=== PATIENT | female | born 1940 | race Caucasian/White ===

== ENCOUNTER → 2023-09-30 13:29 | Outpatient (REF) | payer OTHER, SELFPAY | LOC: HWRCS 13:29 | PROVIDERS: ATTENDING PHYSICIAN Nuclear Medicine Nuclear Cardiology; FAMILY PHYSICIAN Family Medicine | DX: I10 Essential (primary) hypertension (principal); I42.8 Other cardiomyopathies; I08.0 Rheumatic disorders of both mitral and aortic valves | CPT/HCPCS: 93306 ==